=== PATIENT | female | born 1955 | race Caucasian/White ===

== ENCOUNTER 2021-02-09 10:21 | Observation (INO) ==
[2021-02-09] MEDS ORDERED: Ondansetron 4 MG/2 ML VIAL IVP PRN (11:53)
[2021-02-09] MEDS ORDERED: Perflutren Lipid Microsphere 1.3 ML in 0.9 % Sodium Chloride 8.7 ML IVP PRN (11:53)
[2021-02-09] MEDS ORDERED: Naloxone 0.4 MG/ML INJ IVP PRN (11:53)
[2021-02-09] MEDS ORDERED: D5% in Water 1,000 ML IVC PRN (12:25)
[2021-02-09] MEDS ORDERED: Dextrose Gel 15 GM/37.5 ML TUBE PO PRN ×2 (12:25)
[2021-02-09] MEDS ORDERED: *HR* Dextrose 50 % in Water (Syg) 50 ML SYRINGE IVP PRN (12:25)
[2021-02-09] MEDS ORDERED: *HR* LORazepam 2 MG/ML VIAL IVP PRN (12:32)
[2021-02-09 13:37] LABS: Bilirubin,Urine Negative (Negative); Blood,Urine Negative (Negative); Clarity,Urine Clear (Clear); Color,Urine Colorless (Yellow); Glucose,Urine (UA) Normal (Normal); Ketones,Urine Negative (Negative); Leukocyte Esterase,Urine Negative (Negative); Nitrite,Urine Negative (Negative); PH,Urine 6.5 pH Units (5.0-8.0); Protein,Urine Negative (Neg-Trace); Specific Gravity,Urine 1.021 (1.010-1.025); Urobilinogen,Urine Normal (Normal)
[2021-02-09 13:49] LABS: Amphetamine Screen,Urine Negative ng/mL (Cutoff=1000); Barbiturate Screen,Urine Negative ng/mL (Cutoff=200); Benzodiazepines Screen,Urine Negative ng/mL (Cutoff=200); Cannabinoid Screen,Urine Negative ng/mL (Cutoff = 50); Cocaine Screen,Urine Negative ng/mL (Cutoff= 300); Opiate Screen,Urine Negative ng/mL (Cutoff=300); Phencyclidine Screen,Urine Negative ng/mL (Cutoff=25)
[2021-02-09] MEDS ORDERED: lisinopriL 10 MG TABLET PO ONE (14:33)
[2021-02-09 14:39] LABS: Prothrombin Time 11.3 Seconds (9.4-12.1)
[2021-02-09 14:48] LABS: Chol/HDL Ratio 4.7 (0-4.9)
[2021-02-09] MEDS: amLODIPine 5 MG TABLET PO SCH (14:52)
[2021-02-09 16:17] LABS: Estimated Average Glucose 160 mg/dl; Hemoglobin A1C 7.2 %
[2021-02-09] MEDS: Insulin LISPRO 300 UNITS/3 ML VIAL SUBQ SCH (16:29)
[2021-02-09] MEDS: Acetaminophen 325 MG TABLET PO PRN (18:09)
[2021-02-10] MEDS: Acetaminophen 325 MG TABLET PO PRN (02:56)
[2021-02-10] MEDS ORDERED: *HR* Labetalol 20 MG/4 ML SYRINGE IVP ONE (03:22)
[2021-02-10] MEDS ORDERED: *HR* Enoxaparin 40 MG/0.4 ML SYRINGE SQ SCH (06:00)
[2021-02-10 06:17] LABS: Alanine Aminotransferase 30 Units/L (7-52); Albumin 4.1 g/dL (3.5-5.7); Albumin/Globulin Ratio 1.4 (1.1-2.2); Alkaline Phosphatase 75 Units/L (34-104); Aspartate Amino Transferase 19 Units/L (13-39); BUN/Creatinine Ratio 22 (6-26); Bilirubin,Total 0.4 mg/dL (0.3-1.0); Blood Urea Nitrogen 15 mg/dL (8-23); Carbon Dioxide 25 mEq/L (23-29); Chloride 101 mEq/L (98-107); Glucose 171 mg/dL (70-105); Osmolality,Calculated 289 (280-300); Sodium 137 mEq/L (136-145); Total Protein 7.1 g/dL (6.4-8.9); eGFR For African Americans > 60 (> 60); eGFR For Non-African Americans > 60 (> 60)
[2021-02-10 08:11] VITALS: TEMP 98.2
[2021-02-10] MEDS: amLODIPine 5 MG TABLET PO SCH (08:43)
[2021-02-10] MEDS: Insulin LISPRO 300 UNITS/3 ML VIAL SUBQ SCH ×2 (08:44→12:23)
[2021-02-10] MEDS ORDERED: Aspirin 81 MG TAB.CHEW PO SCH (09:00)
[2021-02-10] MEDS ORDERED: lisinopriL 10 MG TABLET PO SCH (10:15)
[2021-02-10] MEDS ORDERED: lisinopriL 10 MG TABLET PO ONE (10:44)
[2021-02-10 12:21] VITALS: BP 154/82; PULSE 99; O2SAT 96
[2021-02-10] MEDS ORDERED: [UNRECOGNIZED DRUG - REMARK] IM ONE (12:30)
[2021-02-10] MEDS ORDERED: atenoloL 50 MG TABLET PO SCH (21:00)
== END 2021-02-10 12:57 | disposition home or self-care (01) ==
LOC: 3ANU → SUATTDRO 11:11
PROVIDERS: ADMIT Family Medicine; ATTEND Student in an Organized Health Care Education/Training Program